=== PATIENT | male | born 1945 | race Caucasian/White ===

== ENCOUNTER 2017-07-20 18:12 | Emergency (ER) | payer MEDICARE ==
[~2017-07-20] VITALS: Ht 185.4 cm; Wt 89.6 kg
[~2017-07-20 18:12] MED LIST: OMEP40CA2 PO; PROS5TAB PO; TAMS5CAP PO; WARF-23 PO; WARF4TAB51 PO
[2017-07-20 18:17] VITALS: BP 157/87; PULSE 87; RESP 18; TEMP 98.2; O2SAT 97
[2017-07-20] MEDS ORDERED: SIMV20TA PO (18:26)
[2017-07-20] MEDS ORDERED: LIDOCAINE HCL 1% 20 ML VIAL INFIL ONE (18:45)
[2017-07-20] MEDS ORDERED: TETANUS/DIPHTHERIA TOXOID ADULT 0.5 ML VIAL IM ONE (19:00)
--- NOTE | 2017-07-20 19:22 | PD ---
HPI Chief Complaint: Laceration/Skin Injury Time Seen by Provider: 18:23 Travel History International Travel<30 days: No Contact w/Intl Traveler<30days: No Traveled to known affect area: No History of Present Illness HPI 71 yo male here for laceration to right index finger. Happened today less than two hours ago. Bleeding from it. Slight pain 2/10. No numbness, tingling, weakness. No difficulty with movement. Unknown tetanus status. Takes blood thinners. No other medical issues. PFSH Past Medical History Hx Anticoagulant Therapy: Yes Arthritis: Yes Cancer: Yes (SKIN CA) Cardiovascular Problems: Yes High Cholesterol: Yes Chemotherapy: No Congestive Heart Failure: No Cerebrovascular Accident: Yes Diabetes: No Diminished Hearing: No Endocrine: No Gastrointestinal Disorders: Yes (STONES, PANCREATITIS) GERD: Yes Genitourinary: Yes (KIDNEY STENT) Hypertension: Yes Immune Disorder: No Implanted Vascular Access Dvce: Yes Kidney Stones: Yes Musculoskeletal: Yes Neurologic: No Psychiatric: No Reproductive: No Respiratory: No Pancreatitis: Yes Radiation Therapy: No Ulcer: Yes Past Surgical History Abdominal Surgery: Yes (GALLBLADDER) AICD: No Arteriovenous Shunt: No Body Medical Devices: HEART VALVE, KIDNEY STENT Cardiac Surgery: Yes (MITRAL VALVE REPLACEMENT) Cholecystectomy: Yes (09-03-06) Ear Surgery: No Eye Surgery: No Genitourinary Surgery: Yes (KIDNEY STONE REMOVAL;TURP ) Insulin Pump: No Joint Replacement: Yes (RIGHT KNEE) Neurologic Surgery: No Oral Surgery: No (LAC REPAIR 09/21/14) Pacemaker: No Valve Replacement: Yes (HEART VALVE REPLACEMENT MECHANICAL- 1994) Other Surgery: Yes (ERCP) Social History Alcohol Use: Yes (BEER COUPLE TIMES PER YEAR) Tobacco Use: No Substance Use: No Allergies-Medications (Allergen,Severity, Reaction): Coded Allergies: No Known Allergies (Verified Adverse Reaction, Unknown, 07/20/17) Reported Meds & Prescriptions Reported Meds & Active Scripts Active Reported Simvastatin 20 Mg Tab Unknown Dose PO DAILY Warfarin 5 Mg Tab 5 Mg PO FRI,, FRI,SUN Warfarin 2 Mg Tab 2 Mg PO MON,FRI, FRIDAY Omeprazole 40 Mg Cap 40 Mg PO DAILY Review of Systems Except as stated in HPI: all other systems reviewed are Neg Physical Exam Narrative GENERAL: SKIN: Warm and dry. HEAD: Atraumatic. Normocephalic. EYES: Pupils equal and round. No scleral icterus. No injection or drainage. ENT: No nasal bleeding or discharge. Mucous membranes pink and moist. NECK: Trachea midline. No JVD. CARDIOVASCULAR: Regular rate and rhythm. RESPIRATORY: No accessory muscle use. Clear to auscultation. Breath sounds equal bilaterally. GASTROINTESTINAL: Abdomen soft, non-tender, nondistended. Hepatic and splenic margins not palpable. MUSCULOSKELETAL: Extremities without clubbing, cyanosis, or edema. No obvious deformities. Full ROM of the right hand. has full ROM of the right index finger. has a superficial laceration about 1 cm horizontal to the nail bed. Minimal bleeding. Opens up if moved. NEUROLOGICAL: Awake and alert. No obvious cranial nerve deficits. Motor grossly within normal limits. Five out of 5 muscle strength in the arms and legs. Normal speech. PSYCHIATRIC: Appropriate mood and affect; insight and judgment normal. Data Data Last Documented VS Vital Signs Date Time Temp Pulse Resp B/P (MAP) Pulse Ox O2 Delivery O2 Flow Rate FiO2 07/20/17 18:17 98.2 87 18 157/87 (110) 97 Orders Orders Lidocaine 1% Inj (Xylocaine 1% Inj) (07/20/17 18:45) Wound Care (07/20/17 18:42) Tetanus/Diphtheria Tox Adult (Tetanus/Di (07/20/17 19:00) Ed Discharge Order (07/20/17 19:20) [facility] Medical Decision Making Medical Screen Exam Complete: Yes Emergency Medical Condition: Yes Medical Record Reviewed: Yes Differential Diagnosis Laceration versus abrasion versus skin tear Narrative Course 71-year-old male that presents to the ED for evaluation of laceration to the left index finger. Patient was properly examined and was found to have signs and symptoms consistent appears to be laceration. After explained procedure to the patient she agreed to it laceration was present procedure note. Patient was given tetanus booster. Told to follow with PCP. See ED worsening symptoms. Procedures Procedure Narrative LACERATION LOCATION: right index finger LENGTH: 1 cm NUMBER OF STITCHES/SURINDER: 5 sutures REPAIR: The area of the laceration was prepped with Betadine and sterilely draped. The laceration was infiltrated with 1% Xylocaine. The wound was copiously irrigated and explored without evidence of foreign body, tendon injury or neurovascular injury. The wound was closed using 5-0 Prolene. This was a 1 layer repair. A sterile dressing was applied. The patient was advised to keep the dressing clean and dry. Patient tolerated the procedure well. Diagnosis Primary Impression: Laceration of finger Qualified Codes: S61.210A - Laceration without foreign body of right index finger without damage to nail, initial encounter Patient Instructions: General Instructions Additional Instructions: Wound care daily with soap and water. You can apply bandaid if needed. Neosporyn or OTC antibiotic ointment to area as needed twice a day for at least 2 weeks to help with scarring and prevent infection. Meoderma OTC for scarring if needed. Avoid sun exposure for 2 months as the sun could make scar darker and more noticeable. Get sutures removed in 14 days. See ED if worst. Med/Other Pt SpecificInfo: No Change to Meds, Wound Care Disposition: 01 DISCHARGE HOME Condition: Stable Galileo Galeano Jul 20, 2017 19:22
== END 2017-07-20 19:27 | disposition home or self-care (01) ==
LOC: PHEFT 18:12
DX: S61.210A Laceration without foreign body of right index finger without damage to nail, initial encounter (principal); I10 Essential (primary) hypertension; X58.XXXA Exposure to other specified factors, initial encounter; Z23 Encounter for immunization; Z79.01 Long term (current) use of anticoagulants
CPT/HCPCS: 12001; 90471; 90714

== ENCOUNTER 2017-07-26 11:58 | Emergency (ER) | payer MEDICARE ==
[~2017-07-26] VITALS: Ht 185.4 cm; Wt 90.6 kg
[~2017-07-26 11:58] MED LIST changes: -PROS5TAB PO; +SIMV20TA PO; -TAMS5CAP PO
[2017-07-26 12:00] VITALS: BP 151/67; PULSE 91; RESP 16; TEMP 97.9; O2SAT 95
--- NOTE | 2017-07-26 12:13 | PD ---
HPI Chief Complaint: Laceration/Skin Injury Time Seen by Provider: 12:05 Travel History International Travel<30 days: No Contact w/Intl Traveler<30days: No Traveled to known affect area: No History of Present Illness HPI 71 year old male presents to the emergency department for evaluation of a laceration just below the left knee that occurred just prior to arrival. Patient states that he is on Coumadin. He was wearing a knee brace and states the chainsaw just barely went through the brace and cut him. He states his tetanus immunization was updated on Friday when he was here with a laceration to the finger. Patient denies any pain at this time. Moderate severity. PFSH Past Medical History Hx Anticoagulant Therapy: Yes (WARFARIN) Arthritis: Yes Cancer: Yes (SKIN CA) High Cholesterol: Yes Chemotherapy: No Congestive Heart Failure: No Cerebrovascular Accident: Yes Diabetes: No Diminished Hearing: No Endocrine: No Gastrointestinal Disorders: Yes (STONES, PANCREATITIS) GERD: Yes Genitourinary: Yes (KIDNEY STENT) Hypertension: Yes Immune Disorder: No Implanted Vascular Access Dvce: Yes Kidney Stones: Yes Musculoskeletal: Yes Neurologic: No Psychiatric: No Reproductive: No Respiratory: No Pancreatitis: Yes Radiation Therapy: No Ulcer: Yes Past Surgical History Abdominal Surgery: Yes (GALLBLADDER) AICD: No Arteriovenous Shunt: No Body Medical Devices: HEART VALVE, KIDNEY STENT Cardiac Surgery: Yes (MITRAL VALVE REPLACEMENT) Cholecystectomy: Yes (09-03-06) Ear Surgery: No Eye Surgery: No Genitourinary Surgery: Yes (KIDNEY STONE REMOVAL;TURP ) Insulin Pump: No Joint Replacement: Yes (RIGHT KNEE) Neurologic Surgery: No Oral Surgery: No (LAC REPAIR 09/21/14) Pacemaker: No Valve Replacement: Yes (HEART VALVE REPLACEMENT MECHANICAL- 1994) Other Surgery: Yes (ERCP) Social History Alcohol Use: Yes (BEER COUPLE TIMES PER YEAR) Tobacco Use: No Substance Use: No Allergies-Medications (Allergen,Severity, Reaction): Coded Allergies: No Known Allergies (Verified Adverse Reaction, Unknown, 07/26/17) Reported Meds & Prescriptions Reported Meds & Active Scripts Active Reported Simvastatin 20 Mg Tab Unknown Dose PO DAILY Warfarin 5 Mg Tab 5 Mg PO E,, FRI,SUN Warfarin 2 Mg Tab 2 Mg PO MON,FRI, FRIDAY Omeprazole 40 Mg Cap 40 Mg PO DAILY Review of Systems Except as stated in HPI: all other systems reviewed are Neg Physical Exam Narrative GENERAL: Well-nourished, well-developed male patient, afebrile. SKIN: Focused skin assessment warm/dry. Patient has a 3 cm laceration just below the left anterior knee. I'm able to visualize the base of the wound. There is no evidence of bony involvement. Bleeding is controlled, HEAD: Normocephalic. Atraumatic. EYES: No scleral icterus. No injection or drainage. NECK: Supple, trachea midline. No JVD or lymphadenopathy. CARDIOVASCULAR: Regular rate and rhythm without murmurs, gallops, or rubs. RESPIRATORY: No accessory muscle use. GASTROINTESTINAL: Abdomen soft, non-tender, nondistended. MUSCULOSKELETAL: No cyanosis, or edema. BACK: Nontender without obvious deformity. No CVA tenderness. Data Data Last Documented VS Vital Signs Date Time Temp Pulse Resp B/P (MAP) Pulse Ox O2 Delivery O2 Flow Rate FiO2 07/26/17 12:00 97.9 91 16 151/67 (95) 95 Orders Orders Lidocai-Epi 1%-1:100,000 Inj (Xylocaine- (07/26/17 12:15) Acetaminophen (Tylenol) (07/26/17 12:45) Splint Or Brace Apply/Monitor (07/26/17 12:34) Cephalexin (Keflex) (07/26/17 12:45) MDM Medical Decision Making Medical Screen Exam Complete: Yes Emergency Medical Condition: Yes Medical Record Reviewed: Yes Differential Diagnosis Laceration versus foreign body versus abrasion Narrative Course 71-year-old male presents to the emergency department for evaluation of a laceration just below the left anterior knee. Patient gives verbal consent for laceration repair. Patient will be started on Keflex to prevent infection. He is instructed on proper wound care. The patient was discharged in stable condition with instructions, including return instructions and follow up instructions. Procedures Procedure Narrative LACERATION LOCATION: Left anterior leg LENGTH: 3 cm NUMBER OF STITCHES/SURINDER: 5 simple sutures REPAIR: The area of the laceration was prepped with Betadine and sterilely draped. The laceration was infiltrated with 1% lidocaine with epinephrine. The wound was copiously irrigated and explored without evidence of foreign body, tendon injury or neurovascular injury. The wound was closed using 4-0 Prolene. This was a single layer repair. A sterile dressing was applied. The patient was advised to keep the dressing clean and dry. Patient tolerated the procedure well. Diagnosis Primary Impression: Laceration of leg Qualified Codes: S81.812A - Laceration without foreign body, left lower leg, initial encounter Referrals: Primary Care Physician call for appointment Patient Instructions: Care For Your Stitches (ED), General Instructions, Laceration (ED) Additional Instructions: [id number] Tylenol every 4 hours as needed for pain. Take antibiotic as directed until gone. Clean laceration twice daily with soap and water and apply [id number] antibiotic ointment. Keep clean and dry. No swimming or hot tubs until healed. Suture removal in 10-14 days. You may follow up with her primary care physician or return here for this. Return to the emergency department for any acute worsening of symptoms. Med/Other Pt SpecificInfo: Prescription(s) given Scripts Cephalexin (Keflex) 500 Mg Cap 500 MG PO Q8H for Infection for 7 Days, #21 CAP 0 Refills Prov: Kell Hernandez 07/26/17 Disposition: 01 DISCHARGE HOME Condition: Stable Kell Hernandez Jul 26, 2017 12:13
[2017-07-26] MEDS ORDERED: LIDOCAINE 1%/EPINEPHrine 1:100,000 SOLN 20 ML VIAL INFIL ONE (12:15)
[2017-07-26] MEDS ORDERED: CEPH-460 PO (12:36)
[2017-07-26] MEDS ORDERED: ACETAMINOPHEN 325 MG TAB PO ONE (12:45)
[2017-07-26] MEDS ORDERED: CEPHALEXIN MONOHYDRATE 500 MG CAP PO ONE (12:45)
== END 2017-07-26 13:00 | disposition home or self-care (01) ==
LOC: PHEFT 11:58
DX: S81.812A Laceration without foreign body, left lower leg, initial encounter (principal); I10 Essential (primary) hypertension; K21.9 Gastro-esophageal reflux disease without esophagitis; E78.00 Pure hypercholesterolemia, unspecified; W29.3XXA Contact with powered garden and outdoor hand tools and machinery, initial encounter; Z79.01 Long term (current) use of anticoagulants; Z87.39 Personal history of other diseases of the musculoskeletal system and connective tissue; Z85.828 Personal history of other malignant neoplasm of skin; Z86.73 Personal history of transient ischemic attack (TIA), and cerebral infarction without residual deficits; Z87.19 Personal history of other diseases of the digestive system; Z87.448 Personal history of other diseases of urinary system
CPT/HCPCS: 12002

== ENCOUNTER 2017-08-13 07:58 | Emergency (ER) | payer MEDICARE ==
[~2017-08-13] VITALS: Ht 185.4 cm; Wt 88.9 kg
[~2017-08-13 07:58] MED LIST changes: +CEPH-460 PO
[2017-08-13 08:03] VITALS: BP 139/83; PULSE 85; RESP 16; TEMP 97.7; O2SAT 96
--- NOTE | 2017-08-13 08:42 | PD ---
HPI Chief Complaint: Wound/Suture/Staple Re-Check Time Seen by Provider: 08:39 Travel History International Travel<30 days: No Contact w/Intl Traveler<30days: No Traveled to known affect area: No History of Present Illness HPI This 71-year-old male had sutures placed in his leg on July 26. He presents now for suture removal. He has not had fever or chills PFSH Past Medical History Hx Anticoagulant Therapy: Yes (WARFARIN) Arthritis: Yes Cancer: Yes (SKIN CA) High Cholesterol: Yes Chemotherapy: No Congestive Heart Failure: No Cerebrovascular Accident: Yes Diabetes: No Diminished Hearing: No Endocrine: No Gastrointestinal Disorders: Yes (STONES, PANCREATITIS) GERD: Yes Genitourinary: Yes (KIDNEY STENT) Hypertension: Yes Immune Disorder: No Implanted Vascular Access Dvce: Yes Kidney Stones: Yes Medical other: Yes (PANCREATITIS) Musculoskeletal: Yes Neurologic: No Psychiatric: No Reproductive: No Respiratory: No Pancreatitis: Yes Radiation Therapy: No Ulcer: Yes Tetanus Vaccination: < 5 Years Influenza Vaccination: Yes Past Surgical History Abdominal Surgery: Yes (GALLBLADDER) AICD: No Arteriovenous Shunt: No Body Medical Devices: HEART VALVE, KIDNEY STENT Cardiac Surgery: Yes (MITRAL VALVE REPLACEMENT) Cholecystectomy: Yes (09-03-06) Ear Surgery: No Eye Surgery: No Genitourinary Surgery: Yes (KIDNEY STONE REMOVAL;TURP ) Insulin Pump: No Joint Replacement: Yes (RIGHT KNEE) Neurologic Surgery: No Pacemaker: No Valve Replacement: Yes (HEART VALVE REPLACEMENT MECHANICAL- 1994) Other Surgery: Yes (ERCP) Social History Alcohol Use: Yes (socially ) Tobacco Use: No Substance Use: No Allergies-Medications (Allergen,Severity, Reaction): Coded Allergies: No Known Allergies (Verified Adverse Reaction, Unknown, 08/13/17) Reported Meds & Prescriptions Reported Meds & Active Scripts Active Reported Simvastatin 20 Mg Tab Unknown Dose PO DAILY Warfarin 5 Mg Tab 5 Mg PO FRI,, FRI,SUN Warfarin 2 Mg Tab 2 Mg PO FRI,FRI, FRIDAY Omeprazole 40 Mg Cap 40 Mg PO DAILY Physical Exam Narrative The laceration appears well-healed. There is no evidence of infection. The sutures will be removed Data Data Last Documented VS Vital Signs Date Time Temp Pulse Resp B/P (MAP) Pulse Ox O2 Delivery O2 Flow Rate FiO2 08/13/17 08:03 97.7 85 16 139/83 (101) 96 Room Air MDM Medical Decision Making Medical Screen Exam Complete: Yes Emergency Medical Condition: Yes Medical Record Reviewed: Yes Differential Diagnosis Patient has a wound which appears to be healing well Narrative Course Sutures will be removed Diagnosis Primary Impression: Healing wound Disposition: 01 DISCHARGE HOME Condition: Stable Blayne Hilario MD Aug 13, 2017 08:42
== END 2017-08-13 09:04 | disposition home or self-care (01) ==
LOC: PHED 07:58 → PHEFT 09:04
DX: Z48.02 Encounter for removal of sutures (principal); E78.00 Pure hypercholesterolemia, unspecified; I10 Essential (primary) hypertension; K21.9 Gastro-esophageal reflux disease without esophagitis; Z86.73 Personal history of transient ischemic attack (TIA), and cerebral infarction without residual deficits; Z87.19 Personal history of other diseases of the digestive system; Z85.828 Personal history of other malignant neoplasm of skin; Z79.01 Long term (current) use of anticoagulants; Z87.442 Personal history of urinary calculi
CPT/HCPCS: 99281